=== PATIENT | female | born 1970 | race Two or more races ===

== ENCOUNTER 2018-02-01 19:45 | Emergency (ER) | payer MEDICAID ==
[~2018-02-01] VITALS: Ht 154.9 cm; Wt 103.9 kg
[2018-02-01 19:46] VITALS: BP 123/84
[2018-02-01 20:30] VITALS: BP 123/84
== END 2018-02-01 20:30 | disposition home or self-care (01) ==
LOC: MED 19:45
DX: Z48.01 Encounter for change or removal of surgical wound dressing (principal)
CPT/HCPCS: 99282

== ENCOUNTER 2020-01-19 21:29 | Emergency (ER) | payer MEDICAID ==
[~2020-01-19] VITALS: Ht 154.9 cm; Wt 103.4 kg
[2020-01-19 21:31] VITALS: BP 159/85
--- NOTE | 2020-01-19 21:39 | NUR ---
PT TAKEN TO BED 12
--- NOTE | 2020-01-19 21:45 | NUR ---
49 YO FEMALE BIB SELF WITH C/C OF 8/10 VAGINAL DISCOMFORT DESCRIBED "PRESSURE" THAT RADIATES TO LOWER BACK [id number]. STATED PAIN SUBSIDED AND WORSENED YESTERDAY. PT DENIES BLEEDING, ODOR, AND ITCHING. PT STATED THERE IS A MUSCUS LIKE DISCHARGE UPON WIPING AFTER URINATION, DENIES URINARY SYMPTOMS. PER PT STATED SHE FELT A "BALL" INSIDE HER VAGINA WHILE SELF-EXAMINING. LBM WAS TODAY SOFT AND FORMED. PT STATED SHE TOOK IBUPROFEN IN THE PAST WITHOUT RELIEF OF SYMPTOMS. PT VISITED A PMD WAS PRESCRIBED AMOXICILLIN, WITH NO CHANGES IN C/C. PT PLACED IN GOWN, BED LOCKED AND IN LOWEST POSITION. SIDE RAILS X1. MED HX: HERNIA RX: DENIES NKA
[2020-01-19 22:29] LABS: APPEARANCE,URINE CLEAR (CLEAR); BILIRUBIN,URINE NEGATIVE (NEGATIVE); BLOOD, URINE NEGATIVE (NEGATIVE); COLOR,URINE YELLOW (YELLOW); LEUKOCYTE ESTERASE ,URINE NEGATIVE (NEGATIVE); NITRITE, URINE NEGATIVE (NEGATIVE); PH,URINE 6.5 (5.0-9.0); UGLUCOSE NEGATIVE (NEGATIVE)
--- NOTE | 2020-01-19 22:37 | NUR ---
PT DENIES NEED FOR PAIN MANAGEMENT AT THIS TIME.
--- NOTE | 2020-01-19 22:52 | NUR ---
ERMD AT BEDSIDE EVALUATING PT.
--- NOTE | 2020-01-19 23:00 | NUR ---
Female Anesthesiology Technologist accompanied female patient for Pelvic Exam.
--- NOTE | 2020-01-19 23:21 | NUR ---
PT GOING TO RAD VIA WHEEL CHAIR.
--- NOTE | 2020-01-19 23:35 | NUR ---
PT RETURNED FROM RAD VIA WHEELCHAIR
[2020-01-20] MEDS ORDERED: IBUPROFEN 800 MG TAB PO ONE (00:05)
[2020-01-20] MEDS ORDERED: MAGNESIUM CITRATE 300 ML BTL PO ONE (00:15)
--- NOTE | 2020-01-20 00:27 | NUR ---
Jo-Ann stone in [facility] - 01/20/20 at 0048 by JORGE LUIS Ultrasound at bedside.
--- NOTE | 2020-01-20 00:27 | NUR ---
Jo-Ann stone in [facility] - 01/20/20 at 0027 by ESTEE US AT BEDSIDE.
--- NOTE | 2020-01-20 00:27 | NUR ---
US AT BEDSIDE.
--- NOTE | 2020-01-20 00:27 | NUR ---
US AT BEDSIDE
--- NOTE | 2020-01-20 01:08 | NUR ---
PT STATED HEADACHE HAS GONE AWAY. MEDICATION EFFECTIVE.
[2020-01-20 01:27] VITALS: BP 106/59
--- NOTE | 2020-01-20 01:27 | NUR ---
Patient discharged with v/s stable. Written and verbal after care instructions given and explained. Patient verbalized understanding. Ambulatory with steady gait. All questions addressed prior to discharge. Advised to follow up with PMD.
== END 2020-01-20 01:27 | disposition home or self-care (01) ==
LOC: MED 21:29
DX: K59.00 Constipation, unspecified (principal); N85.00 Endometrial hyperplasia, unspecified
CPT/HCPCS: 74018; 76830; 81003; 81025; 99285; Q0092

== ENCOUNTER 2020-06-11 21:20 | Emergency (ER) | payer MEDICAID ==
[~2020-06-11] VITALS: Ht 154.9 cm; Wt 106.6 kg
[2020-06-11 21:26] VITALS: BP 148/93
--- NOTE | 2020-06-11 21:35 | NUR ---
PT AMBULATED TO BED #6
--- NOTE | 2020-06-11 22:00 | NUR ---
PATIENT PRESENTS TO ED WITH C/O DIZZINESS X 1 WEEK . PT STATES MY LEFT ARM FEELS NUMB . DENIES N/V/D; SKIN IS PINK/WARM/DRY; AAOX4 WITH EVEN AND STEADY GAIT; LUNGS CLEAR BL; HR EVEN AND REGULAR; PT DENIES ANY FEVER, CP, SOB, OR COUGH AT THIS TIME; PATIENT STATES PAIN OF 6/10 AT THIS TIME DESCRIBED A DISCOMFORT; VSS; PATIENT POSITIONED FOR COMFORT; HOB ELEVATED; BEDRAILS UP X2; BED DOWN. ER MD MADE AWARE OF PT STATUS.
[2020-06-11] MEDS ORDERED: MECLIZINE 25 MG TAB PO ONE (22:05)
[2020-06-11 22:27] LABS: BASOPHILS % (AUTO) 0.2 % (0.0-2.0); EOSINOPHILS # (AUTO) 0.1 K/uL (0-0.4); HEMATOCRIT 34.8 % (36-48); HEMOGLOBIN 11.3 g/dL (12.0-16.0); LYMPHOCYTES # (AUTO) 1.7 K/uL (2.5-16.5); LYMPHOCYTES % (AUTO) 27.8 % (20.5-51.1); MEAN CORPUSCULAR HEMOGLOBIN 24 pg (27-31); MEAN CORPUSCULAR HGB CONC 32 g/dL (33-37); MEAN CORPUSCULAR VOLUME 73.7 fL (80-94); MONOCYTES # (AUTO) 0.4 K/uL (0.8-1.0); MONOCYTES % (AUTO) 6.3 % (1.7-9.3); NEUTROPHILS # (AUTO) 3.9 K/uL (1.8-7.7); NEUTROPHILS % (AUTO) 63.7 % (42.2-75.2); PLATELET COUNT (AUTO) 243 K/uL (140-450); RED BLOOD CELL COUNT(AUTO) 4.71 MIL/uL (4.20-5.40); RED CELL DISTRIBUTION WIDTH 19.3 % (11.6-13.7); WHITE BLOOD COUNT (AUTO) 6.1 K/uL (4.8-10.8)
--- NOTE | 2020-06-11 22:30 | NUR ---
PCXR DONE, LABS DRAWN
[2020-06-11 23:10] LABS: POTASSIUM 3.6 mmol/L (3.5-5.1)
[2020-06-11 23:11] LABS: ANION GAP 13.5 (8-16); CARBON DIOXIDE 27.1 mmol/L (21-32); CREATININE 0.7 mg/dL (0.6-1.3)
[2020-06-11 23:15] LABS: ALBUMIN 3.9 g/dL (3.4-5.0); TOTAL BILIRUBIN 0.2 mg/dL (0.0-1.0)
--- NOTE | 2020-06-12 00:39 | NUR ---
REPPEAT TROPONIN DRAWN. REPEAT EKG IN PROGRESS
[2020-06-12 01:35] VITALS: BP 130/70
--- NOTE | 2020-06-12 01:35 | NUR ---
PT HAS BEEN REEVALUATED AND IS READY FOR DISCHARGEPatient discharged with v/s stable. Written and verbal after care instructions given and explained. Patient verbalized understanding. Ambulatory with steady gait. All questions addressed prior to discharge. Advised to follow up with PMD.
== END 2020-06-12 01:35 | disposition home or self-care (01) ==
LOC: MED 21:20
DX: R42 Dizziness and giddiness (principal); R07.89 Other chest pain; M79.602 Pain in left arm; Z90.49 Acquired absence of other specified parts of digestive tract; Z98.890 Other specified postprocedural states
CPT/HCPCS: 36415; 71045; 80053; 84484; 85025; 93005; 99285; J8597

== ENCOUNTER 2020-08-04 01:47 | Emergency (ER) | payer MEDICAID ==
[~2020-08-04] VITALS: Ht 154.9 cm; Wt 102.5 kg
[2020-08-04 01:57] VITALS: BP 126/71
--- NOTE | 2020-08-04 02:05 | NUR ---
TO BED 11, AMBULATORY
--- NOTE | 2020-08-04 02:12 | NUR ---
ERMD AT BEDSIDE.
--- NOTE | 2020-08-04 02:14 | NUR ---
PATIENT BIB SELF FOR C/O 01/07 PAIN R/T ABCESS ON LEFT SIDE OF UPPER BODY. PATIENT REPORTS SHE HAS HAD IT FOR 2 YEARS BUT BEGAN GROWING AND BECAME PAINFUL X 5 DAYS AGO. PATIENT DENIES FEVER, CHILLS, N/V/D. PATIENT NOTED WITH ABCESS TO LEFT SIDE OF UPPER BODY THAT IS RED, SWOLLEN, TENDER WITH DISCHARGE PRESENT. SEE COMPLETE ASSESSMENT FOR FURTHER DETAILS. MED HX: DENIES ALLERGIES: NKA
[2020-08-04] MEDS ORDERED: SULFAMETH/TRIMETH DS 800/160MG 1 TAB PO ONE (02:20)
[2020-08-04] MEDS ORDERED: LIDOCAINE MPF 1% 10 MG/ML VIAL INJ ONE (02:20)
[2020-08-04] MEDS ORDERED: IBUPROFEN 800 MG TAB PO ONE (02:20)
--- NOTE | 2020-08-04 02:25 | NUR ---
CONSENT RECIEVED FOR TDAP VACCINE.
--- NOTE | 2020-08-04 02:45 | NUR ---
ERMD AT BEDSIDE PERFORMING I&D PROCEDURE.
[2020-08-04] MEDS ORDERED: SULF-59 PO (03:07)
[2020-08-04] MEDS ORDERED: IBUP-2218 PO (03:07)
[2020-08-04 03:23] VITALS: BP 126/71
--- NOTE | 2020-08-04 03:23 | NUR ---
Patient discharged with v/s stable. Written and verbal after care instructions given and explained. Patient alert, oriented and verbalized understanding of instructions. Ambulatory with steady gait. All questions addressed prior to discharge. ID band removed. Patient advised to follow up with PMD. Rx of IBUPROFEN AND BACTRIM DS given. Patient educated on indication of medication including possible reaction and side effects. Opportunity to ask questions provided and answered.
== END 2020-08-04 03:23 | disposition home or self-care (01) ==
LOC: MED 01:47
DX: L02.412 Cutaneous abscess of left axilla (principal)
CPT/HCPCS: 10060; 87070; 87075; 90471; 90715; 99283; J2001

== ENCOUNTER 2020-08-06 17:35 | Emergency (ER) | payer MEDICAID ==
[~2020-08-06] VITALS: Ht 154.9 cm; Wt 103.9 kg
[~2020-08-06 17:35] MED LIST: IBUP-2218 PO; SULF-59 PO
[2020-08-06 17:55] VITALS: BP 144/91
--- NOTE | 2020-08-06 18:01 | NUR ---
PT TAKEN TO LOBBY.
--- NOTE | 2020-08-06 18:07 | NUR ---
50 Y/O FEMALE HERE FOR A WOUND RECHECK. PT STATES SHE WAS SEEN HERE IN THE ER FOR PROCEDURE X3DAYS. PT STATES 08/07 WITH MOVEMENT. PT DENIES N/V, DENIES FEVER/CHILLS. DENIES PMH NKA
--- NOTE | 2020-08-06 18:15 | NUR ---
DR. YUN WITH PT FOR FURTHER EVALUATION.
--- NOTE | 2020-08-06 18:33 | NUR ---
WOUND CARE PROVIDED BY EMT PER MD ORDER.
[2020-08-06 19:06] VITALS: BP 136/74
== END 2020-08-06 18:52 | disposition home or self-care (01) ==
LOC: MED 17:35
DX: L02.412 Cutaneous abscess of left axilla (principal); Z48.00 Encounter for change or removal of nonsurgical wound dressing; E66.9 Obesity, unspecified
CPT/HCPCS: 99281

== ENCOUNTER 2021-07-16 12:50 | Emergency (ER) | payer MEDICAID ==
[~2021-07-16] VITALS: Ht 154.9 cm; Wt 99.8 kg
[2021-07-16 12:55] VITALS: BP 144/85
[2021-07-16] MEDS ORDERED: ACET-8386 PO (14:36)
--- NOTE | 2021-07-16 15:15 | NUR ---
Patient discharged with v/s stable. Written and verbal after care instructions ABOUT TOE FRACTURE given and explained. Patient alert, oriented and verbalized understanding of instructions. Ambulatory with steady gait. All questions addressed prior to discharge. ID band removed. Patient advised to follow up with PMD. Rx of NORCO 5-325MG given. Patient educated on indication of medication including possible reaction and side effects. Opportunity to ask questions provided and answered. PT SEEN AND TREATED BY BEAN RODRIGUEZ, NO NURSING INTERVENTIONS PROVIDED
== END 2021-07-16 15:15 | disposition home or self-care (01) ==
LOC: MED 12:50
DX: S92.422A Displaced fracture of distal phalanx of left great toe, initial encounter for closed fracture (principal); Z79.899 Other long term (current) drug therapy; Z98.890 Other specified postprocedural states; W20.8XXA Other cause of strike by thrown, projected or falling object, initial encounter; Y93.89 Activity, other specified; Y92.89 Other specified places as the place of occurrence of the external cause; Y99.8 Other external cause status
CPT/HCPCS: 73630; 99283